=== PATIENT | female | born 1990 | race Caucasian/White ===

== ENCOUNTER 2021-07-02 19:52 | Emergency (ER) | payer OTHER ==
[2021-07-02 20:04] VITALS: RESP 18
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
[2021-07-02 21:11] LABS: Cocaine Screen,Urine Not Detected (NotDetected); Phencyclidine Screen,Urine Not Detected (NotDetected); Urn Cannabinoid Scrn Not Detected (NotDetected)
[2021-07-02 21:12] LABS: Amphetamine Screen,Urine Detected (NotDetected); Barbiturate Screen,Urine Not Detected (NotDetected); Benzodiazepines Screen,Urine Not Detected (NotDetected); Methadone Screen, Urine Not Detected (NotDetected); Opiate Screen,Urine Detected (NotDetected); Oxycodone Screen, Urine Not Detected (NotDetected); Tricyclic Antidepressant,Urine Not Detected (NotDetected)
[2021-07-02 22:13] VITALS: BP 146/89; PULSE 80; TEMP 97.8
== END 2021-07-02 22:05 | disposition home or self-care (01) ==
LOC: EC 19:52
DX: F15.10 Other stimulant abuse, uncomplicated (principal); F17.200 Nicotine dependence, unspecified, uncomplicated
CPT/HCPCS: 80306; 82075; 99285

== ENCOUNTER 2021-09-14 14:54 | Emergency (ER) | payer OTHER ==
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
[2021-09-14 17:04] VITALS: BP 136/80; PULSE 103; RESP 16; TEMP 98
== END 2021-09-14 17:06 | disposition home or self-care (01) ==
LOC: EC 14:54
DX: T40.1X1A Poisoning by heroin, accidental (unintentional), initial encounter (principal); F17.200 Nicotine dependence, unspecified, uncomplicated; Z72.89 Other problems related to lifestyle
CPT/HCPCS: 99283

== ENCOUNTER 2022-07-12 02:07 | Emergency (ER) | payer OTHER ==
[2022-07-12 02:22] VITALS: RESP 18
[2022-07-12] MEDS ORDERED: MORPHINE SULFATE 4 MG/ML SYRINGE IV STA (02:37)
[2022-07-12] MEDS ORDERED: ONDANSETRON 4 MG/2 ML VIAL IVP STA (02:37)
[2022-07-12] MEDS ORDERED: SODIUM CHLORIDE 0.9% 1,000 ML IV STA (02:37)
[2022-07-12] MEDS ORDERED: PANTOPRAZOLE 40 MG/10 ML VIAL IVP STA (02:37)
--- NOTE | 2022-07-12 02:37 | ED ---
Abdominal Pain HPI - General Chief Complaint: Abdominal Pain Stated Complaint: Upper Abd Pain Time Seen by Provider: 07/12/22 02:30 Source: patient Mode of arrival: ambulatory Limitations: no limitations - History of Present Illness Initial Comments: 31-year-old female with past history of intravenous drug abuse presents to the emergency department with epigastric pain. States the pain has been present for the past 4 hours. Denies provocative factors including food intake. Pain is located in the epigastric region. Denies history of similar in the past. She denies ulcer history, pancreatitis. No alcohol use. She admits to nausea without vomiting. Pain does not radiate. She has not taken anything for the pain at home. She denies any changes in her urination to include dysuria, hematuria or difficulty voiding. Denies diarrhea, constipation, black or bloody stools. No fevers. No chest pain. No history of cardiac disease. She is st atus post cholecystectomy. No other alleviating, precipitating or modifying factors - Related Data Previous Rx's Medication Instructions Recorded Cephalexin [Keflex] 500 mg PO Q12HR 1 Days #14 cap 07/12/22 Famotidine [Pepcid] 20 mg PO BID #28 tablet 07/12/22 Omeprazole [PriLOSEC] 20 mg PO AC-BRKFST #30 cap 07/12/22 Allergies Allergy/AdvReac Type Severity Reaction Status Date / Time No Known Allergies Allergy Verified 07/12/22 02:22 Review of Systems ROS Statement: Those systems with pertinent positive or pertinent negative responses have been documented in the HPI. ROS Other: All systems not noted in ROS Statement are negative. Past Medical History Past Medical History: No Reported History History of Any Multi-Drug Resistant Organisms: MRSA Date of last positivie culture/infection: 2015 MDRO Source:: abd Past Surgical History: Section, Cholecystectomy Past Psychological History: ADD/ADHD, Depression Smoking Status: Current every day smoker Past Alcohol Use History: Occasional Past Drug Use History: Methamphetamine General Exam Limitations: no limitations General appearance: alert, in no apparent distress Head exam: Present: atraumatic, normocephalic, normal inspection Eye exam: Present: normal appearance, PERRL, EOMI. Absent: scleral icterus, conjunctival injection, periorbital swelling ENT exam: Present: normal exam, mucous membranes moist Neck exam: Present: normal inspection. Absent: tenderness, meningismus, lymphadenopathy Respiratory exam: Present: normal lung sounds bilaterally. Absent: respiratory distress, wheezes, rales, rhonchi, stridor Cardiovascular Exam: Present: regular rate, normal rhythm, normal heart sounds. Absent: systolic murmur, diastolic murmur, rubs, gallop, clicks GI/Abdominal exam: Present: soft, tenderness (epigastric), normal bowel sounds. Absent: distended, guarding, rebound, rigid Extremities exam: Present: normal inspection, full ROM, normal capillary refill. Absent: tenderness, pedal edema, joint swelling, calf tenderness Back exam: Present: normal inspection Neurological exam: Present: alert, oriented X3, CN II-XII intact Psychiatric exam: Present: normal affect, normal mood Skin exam: Present: warm, dry, intact, normal color. Absent: rash Course Vital Signs 07/12/22 07/12/22 02:19 05:17 Temperature 98.1 F 97.8 F Pulse Rate 94 115 H Respiratory 18 18 Rate Blood Pressure 166/105 151/99 O2 Sat by Pulse 100 Oximetry Medical Decision Making - Medical Decision Making Upon arrival patient is placed into room 6. A thorough history and physical exam was performed. IV access is established laboratory studies are conducted and reviewed. Liver enzymes are elevated. Urine is positive for nitrites. CT the abdomen and pelvis demonstrates no acute process. Possible intrauterine gestational sac however the patient is not . The patient was given Protonix, GI cocktail and a dose of morphine and Zofran. Patient also given a liter bolus normal saline. She is reevaluated and reports that her pain is resolved at this time. I did discuss diagnosis, differential and treatment options. Patient will be placed on Pepcid, Protonix In the outpatient setting. Instructed to take the medications as directed. He is to follow-up with a GI doctor as she needs further evaluation for her elevated liver enzymes and epigastric symptoms. She is instructed to return for any new or worsening symptoms. Patient was agreeable to this plan and was discharged home in stable condition. - Lab Data Result diagrams: 07/12/22 03:08 07/12/22 03:08 Lab Results 07/12/22 07/12/22 07/12/22 Range/Units 03:08 03:08 03:08 WBC 4.7 (3.8-10.6) k/uL RBC 4.11 (3.80-5.40) m/uL Hgb 12.9 (11.4-16.0) gm/dL Hct 38.6 (34.0-46.0) % MCV 93.9 (80.0-100.0) fL MCH 31.3 (25.0-35.0) pg MCHC 33.4 (31.0-37.0) g/dL RDW 11.5 (11.5-15.5) % Plt Count 350 (150-450) k/uL MPV 6.6 Neutrophils % 36 % Lymphocytes % 51 % Monocytes % 6 % Eosinophils % 3 % Basophils % 2 % Neutrophils # 1.7 (1.3-7.7) k/uL Lymphocytes # 2.4 (1.0-4.8) k/uL Monocytes # 0.3 (0-1.0) k/uL Eosinophils # 0.1 (0-0.7) k/uL Basophils # 0.1 (0-0.2) k/uL Sodium (137-145) mmol/L Potassium (3.5-5.1) mmol/L Chloride (98-107) mmol/L Carbon Dioxide (22-30) mmol/L Anion Gap mmol/L BUN (7-17) mg/dL Creatinine (0.52-1.04) mg/dL Est GFR (CKD-EPI)AfAm (>60 ml/min/1.73 sqM) Est GFR (CKD-EPI)NonAf (>60 ml/min/1.73 sqM) Glucose (74-99) mg/dL Calcium (8.4-10.2) mg/dL Total Bilirubin (0.2-1.3) mg/dL AST (14-36) U/L ALT (4-34) U/L Alkaline Phosphatase (38-126) U/L Troponin I (0.000-0.034) ng/mL Total Protein (6.3-8.2) g/dL Albumin (3.5-5.0) g/dL Lipase (23-300) U/L Urine Color Light Yellow Urine Appearance Clear (Clear) Urine pH 7.0 (5.0-8.0) Ur Specific [place] 1.035 (1.001-1.035) Urine Protein Negative (Negative) Urine Glucose (UA) Negative (Negative) Urine Ketones Negative (Negative) Urine Blood Negative (Negative) Urine Nitrite Positive H (Negative) Urine Bilirubin Negative (Negative) Urine Urobilinogen <2.0 (<2.0) mg/dL Ur Leukocyte Esterase Negative (Negative) Urine RBC 1 (0-5) /hpf Urine WBC 1 (0-5) /hpf Ur Squamous Epith Cells 3 (0-4) /hpf Urine HCG, Qual Not Detected (Not Detectd) 07/12/22 07/12/22 Range/Units 03:08 03:08 WBC (3.8-10.6) k/uL RBC (3.80-5.40) m/uL Hgb (11.4-16.0) gm/dL Hct (34.0-46.0) % MCV (80.0-100.0) fL MCH (25.0-35.0) pg MCHC (31.0-37.0) g/dL RDW (11.5-15.5) % Plt Count (150-450) k/uL MPV Neutrophils % % Lymphocytes % % Monocytes % % Eosinophils % % Basophils % % Neutrophils # (1.3-7.7) k/uL Lymphocytes # (1.0-4.8) k/uL Monocytes # (0-1.0) k/uL Eosinophils # (0-0.7) k/uL Basophils # (0-0.2) k/uL Sodium 134 L (137-145) mmol/L Potassium 5.1 (3.5-5.1) mmol/L Chloride 97 L (98-107) mmol/L Carbon Dioxide 26 (22-30) mmol/L Anion Gap 11 mmol/L BUN 12 (7-17) mg/dL Creatinine 0.64 (0.52-1.04) mg/dL Est GFR (CKD-EPI)AfAm >90 (>60 ml/min/1.73 sqM) Est GFR (CKD-EPI)NonAf >90 (>60 ml/min/1.73 sqM) Glucose 99 (74-99) mg/dL Calcium 9.3 (8.4-10.2) mg/dL Total Bilirubin 1.0 (0.2-1.3) mg/dL AST 119 H (14-36) U/L ALT 145 H (4-34) U/L Alkaline Phosphatase 67 (38-126) U/L Troponin I 0.030 (0.000-0.034) ng/mL Total Protein 7.8 (6.3-8.2) g/dL Albumin 4.1 (3.5-5.0) g/dL Lipase 53 (23-300) U/L Urine Color Urine Appearance (Clear) Urine pH (5.0-8.0) Ur Specific [place] (1.001-1.035) Urine Protein (Negative) Urine Glucose (UA) (Negative) Urine Ketones (Negative) Urine Blood (Negative) Urine Nitrite (Negative) Urine Bilirubin (Negative) Urine Urobilinogen (<2.0) mg/dL Ur Leukocyte Esterase (Negative) Urine RBC (0-5) /hpf Urine WBC (0-5) /hpf Ur Squamous Epith Cells (0-4) /hpf Urine HCG, Qual (Not Detectd) - EKG Data EKG Comments: EKG demonstrates sinus rhythm with a rate of 84. KS interval 152. QRS 105. QTC of 425. No acute ST segment elevations or depressions Disposition Clinical Impression: Abnormal urinalysis, Epigastric pain, Elevated liver enzymes Disposition: HOME SELF-CARE Condition: Stable Instructions (If sedation given, give patient instructions): Abdominal Pain (ED) Additional Instructions: You need further evaluation of your elevated liver enzymes. I recommend seeing a GI doctor. You may need an EGD and liver ultrasound. Return for any new or worsening symptoms. Prescriptions: Cephalexin [Keflex] 500 mg PO Q12HR 1 Days #14 cap Famotidine [Pepcid] 20 mg PO BID #28 tablet Omeprazole [PriLOSEC] 20 mg PO AC-BRKFST #30 cap Is patient prescribed a controlled substance at d/c from ED?: No Referrals: Nicol Melchor DO [Primary Care Provider] - 1-2 days Miller Ambrose MD [Medical Doctor] - 1-2 days Tamela Lange MD [STAFF PHYSICIAN] - 1-2 days Time of Disposition: 05:04
[2022-07-12] MEDS ORDERED: MAG HYDROX/AL HYDROX/SIMETH 30 ML, HYOSCYAMINE ELIXIR 10 ML, LIDOCAINE VISCOUS 2% 10 ML PO STA ×3 (02:38)
[2022-07-12 03:41] LABS: Basophils # (A) 0.1 k/uL (0-0.2); Basophils % (A) 2 %; Eosinophils # (A) 0.1 k/uL (0-0.7); Eosinophils % (A) 3 %; HCT 38.6 % (34.0-46.0); HGB 12.9 gm/dL (11.4-16.0); Lymphocytes # (A) 2.4 k/uL (1.0-4.8); Lymphocytes % (A) 51 %; MCH 31.3 pg (25.0-35.0); MCHC 33.4 g/dL (31.0-37.0); MCV 93.9 fL (80.0-100.0); Mean Platelet Volume 6.6; Monocytes # (A) 0.3 k/uL (0-1.0); Monocytes % (A) 6 %; Neutrophils # (A) 1.7 k/uL (1.3-7.7); Neutrophils % (A) 36 %; Platelet Count 350 k/uL (150-450); RBC 4.11 m/uL (3.80-5.40); RDW 11.5 % (11.5-15.5); WBC 4.7 k/uL (3.8-10.6)
[2022-07-12 03:50] LABS: ALT 145 U/L (4-34); AST 119 U/L (14-36); African American GFR (CKD) >90 (>60 ml/min/1.73 sqM); Albumin 4.1 g/dL (3.5-5.0); Alkaline Phosphatase 67 U/L (38-126); Anion Gap 11 mmol/L; Blood Urea Nitrogen 12 mg/dL (7-17); Calcium 9.3 mg/dL (8.4-10.2); Carbon Dioxide 26 mmol/L (22-30); Chloride 97 mmol/L (98-107); Glucose 99 mg/dL (74-99); Lipase 53 U/L (23-300); Non-African American GFR(CKD) >90 (>60 ml/min/1.73 sqM); Sodium 134 mmol/L (137-145); Total Protein 7.8 g/dL (6.3-8.2)
--- NOTE | 2022-07-12 04:06 | CT ---
EXAMINATION TYPE: CT abdomen pelvis w con DATE OF EXAM: 07/12/2022 COMPARISON: None HISTORY: UPPER ABD PAIN & NAUSEA X4 HOURS CT DLP: 1109.7 mGycm Automated exposure control for dose reduction was used. CONTRAST: Performed with IV Contrast, patient injected with 100 mL of Isovue 300. Images obtained from the diaphragm to the floor of the pelvis with the IV contrast. Lung bases are clear of consolidation. No pleural effusion. Heart size is normal. No pericardial effu grupo. Liver spleen stomach pancreas appear intact. The bile ducts are not dilated. There are clips a nd cholecystectomy. There is no adrenal mass. Kidneys show satisfactory contrast opacification. No hydronephrosis. Append ix is anterior and appears normal. Bladder distends smoothly. No inguinal hernia. No free fluid in th e pelvis. Uterus is intact. There are clips from tubal ligation. No pelvic mass. No inguinal hernia. Uterus is retroverted. There is 1 cm area of rounded fluid density in the uterine fundus. There is no mesenteric edema. No ascites or free air. No bowel obstruction. The lumbar vertebrae have normal alignment. Posterior elements are intact. No compression fracture. Bony pelvis is intact. The hip joints are intact. IMPRESSION: Normal appendix. No acute abnormality in the abdomen and pelvis. Possible intrauterine gestational sac.
[2022-07-12 04:08] LABS: Potassium 5.1 mmol/L (3.5-5.1)
[2022-07-12 04:40] LABS: Appearance,Urine Clear (Clear); Bilirubin,Urine Negative (Negative); Blood,Urine Negative (Negative); Color,Urine Light Yellow; Glucose,Urine (UA) Negative (Negative); Ketones,Urine Negative (Negative); Leukocyte Esterase,Urine Negative (Negative); Nitrite,Urine Positive (Negative); Protein,Urine Negative (Negative); RBC,Urine 1 /hpf (0-5); Specific Gravity,Urine 1.035 (1.001-1.035); Squamous Epithelial Cell,Urine 3 /hpf (0-4); Urobilinogen,Urine <2.0 mg/dL (<2.0); WBC,Urine 1 /hpf (0-5)
[2022-07-12] MEDS ORDERED: CEPHALEXIN 500 MG CAP PO STA (04:49)
[2022-07-12 05:19] VITALS: BP 151/99; PULSE 115; TEMP 97.8
== END 2022-07-12 05:22 | disposition home or self-care (01) ==
LOC: EC 02:07
DX: R74.8 Abnormal levels of other serum enzymes (principal); R10.13 Epigastric pain; F17.200 Nicotine dependence, unspecified, uncomplicated
CPT/HCPCS: 36415; 80053; 83690; 84484; 85025; 81001; 81025; 74177; 99284; 96374; 96375; 96361; J2270; J2405; C9113; Q9967

== ENCOUNTER 2023-05-15 15:40 | Emergency (ER) | payer OTHER ==
[2023-05-15 16:01] VITALS: RESP 18; TEMP 99
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
[2023-05-15] MEDS ORDERED: KETOROLAC 15 MG/ML 1 ML VIAL IM STA (17:14)
[2023-05-15] MEDS ORDERED: DEXAMETHASONE SOD PHOSPHATE 10 MG/ML 1 ML VIAL IM STA (17:14)
[2023-05-15] MEDS ORDERED: ORPHENADRINE 30 MG/ML 2 ML VIAL IM STA (17:17)
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
[2023-05-15 17:57] VITALS: BP 128/79; PULSE 70
== END 2023-05-15 17:57 | disposition home or self-care (01) ==
LOC: EC 15:40
DX: S16.1XXA Strain of muscle, fascia and tendon at neck level, initial encounter (principal); F17.200 Nicotine dependence, unspecified, uncomplicated; Z86.59 Personal history of other mental and behavioral disorders; Z90.49 Acquired absence of other specified parts of digestive tract; V43.52XA Car driver injured in collision with other type car in traffic accident, initial encounter; Y92.410 Unspecified street and highway as the place of occurrence of the external cause
CPT/HCPCS: 73060; 73090; 73130; 72125; 70450; 99284; 96372 ×3; J1100; J2360; J1885

== ENCOUNTER 2023-05-16 09:16 | Emergency (ER) | payer OTHER ==
[2023-05-16 09:41] VITALS: RESP 18
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
--- NOTE | 2023-05-16 12:04 | XR ---
EXAMINATION TYPE: XR lumbar spine 2 or 3V DATE OF EXAM: 05/16/2023 11:23 AM INDICATION: Patient age:Female; 32 years old; Reason for study: pain; COMPARISON: None TECHNIQUE: Frontal, lateral and coned in L5-S1 lateral views of the spine. FINDINGS: No evidence of any acute osseous pathology. No evidence of loss of vertebral body height i s seen. There is normal alignment of the lumbar vertebral bodies. No significant degeneration changes throughout the spine. IMPRESSION: No acute fracture.
[2023-05-16 12:28] VITALS: BP 132/80; PULSE 68; TEMP 97.8
== END 2023-05-16 12:30 | disposition home or self-care (01) ==
LOC: EC 09:16
DX: M54.50 Low back pain, unspecified (principal); M79.662 Pain in left lower leg; V89.2XXA Person injured in unspecified motor-vehicle accident, traffic, initial encounter; Y92.410 Unspecified street and highway as the place of occurrence of the external cause
CPT/HCPCS: 72100; 99284

== ENCOUNTER 2023-10-01 15:03 | Emergency (ER) | payer OTHER ==
[2023-10-01 15:21] VITALS: TEMP 98.7
[2023-10-01] MEDS ORDERED: KETOROLAC 15 MG/ML 1 ML VIAL IVP STA (15:26)
[2023-10-01] MEDS ORDERED: SODIUM CHLORIDE 0.9% 1,000 ML IV STA (15:26)
[2023-10-01] MEDS ORDERED: DEXAMETHASONE SOD PHOSPHATE 10 MG/ML 1 ML VIAL IVP STA (15:26)
[2023-10-01] MEDS ORDERED: diphenhydrAMINE 50 MG/ML 1 ML VIAL IVP STA (15:26)
[2023-10-01] MEDS ORDERED: METOCLOPRAMIDE 5 MG/ML 2 ML VIAL IVP STA (15:27)
--- NOTE | 2023-10-01 15:35 | ED ---
Headache HPI - General Chief Complaint: Headache Stated Complaint: R eye and head pain Time Seen by Provider: 10/01/23 15:12 Mode of arrival: ambulatory Limitations: no limitations - History of Present Illness Initial Comments: Hortensia is a 33-year-old female who presents to the ER today for evaluation of headache. Patient states that she's had a upper respiratory infection for a couple days with a minimally productive cough, runny stuffy nose and sore throat. She states that today she feels like there is a lot of pressure above and behind her right eye and headache. No vision changes. States it feels like a sinus headache but worse than typical. Patient denies history of migraines. She denies any head trauma. - Related Data Previous Rx's Medication Instructions Recorded Cephalexin [Keflex] 500 mg PO Q12HR 1 Days #14 cap 07/12/22 Famotidine [Pepcid] 20 mg PO BID #28 tablet 07/12/22 Omeprazole [PriLOSEC] 20 mg PO AC-BRKFST #30 cap 07/12/22 methocarbamoL [Robaxin-750] 750 mg PO QID PRN #12 tab 05/15/23 Allergies Allergy/AdvReac Type Severity Reaction Status Date / Time No Known Allergies Allergy Verified 10/01/23 15:09 Review of Systems ROS Statement: Those systems with pertinent positive or pertinent negative responses have been documented in the HPI. ROS Other: All systems not noted in ROS Statement are negative. Past Medical History Past Medical History: No Reported History Additional Past Medical History / Comment(s): autoimmune disease History of Any Multi-Drug Resistant Organisms: MRSA Date of last positivie culture/infection: 2015 MDRO Source:: abd Past Surgical History: Section, Cholecystectomy, Tonsillectomy, Tubal Ligation Past Psychological History: ADD/ADHD, Depression Smoking Status: Current every day smoker Past Alcohol Use History: Occasional Past Drug Use History: Marijuana, Methamphetamine General Exam - General Exam Comments Initial Comments: Physical Exam GENERAL: Patient is well-developed and well-nourished Patient is nontoxic and well-hydrated and is in no distress. HENT: Normocephalic, Atraumatic Tenderness to percussion of right frontal sinus Nasal turbinates edematous EYES: PERRL, EOMI Tearing from right eye PULMONARY: Unlabored respirations CARDIOVASCULAR: RRR Warm and well perfused extremities ABDOMEN: Non-distended SKIN: No rashes or bruising : Deferred NEUROLOGIC: Alert and oriented Normal speech Normal gait MUSCULOSKELETAL: Moving all extremities with no apparent injury PSYCHIATRIC: No SI/HI Limitations: no limitations Course Vital Signs 10/01/23 10/01/23 15:07 17:14 Temperature 98.7 F Pulse Rate 106 H 96 Respiratory 20 18 Rate Blood Pressure 141/92 143/86 O2 Sat by Pulse 99 99 Oximetry Medical Decision Making - Medical Decision Making Was pt. sent in by a medical professional or institution (, JESUS, DISPOSAL OPERATOR, urgent care, hospital, or fci...) When possible be specific @ -No Did you speak to anyone other than the patient for history (EMS, parent, family, police, friend...)? What history was obtained from this source @ -No Did you review nursing and triage notes (agree or disagree)? Why? @ -I reviewed and agree with nursing and triage notes Were old charts reviewed (outside hosp., previous admission, EMS record, old EKG, old radiological studies, urgent care reports/EKG's, [facility]ci records)? Report findings @ Previous ER visits were reviewed Differential Diagnosis (chest pain, altered mental status, abdominal pain women, abdominal pain men, vaginal bleeding, weakness, fever, dyspnea, syncope, headache, dizziness, GI bleed, back pain, seizure, CVA, palpatations, mental health)? @ Differential Headache: Migraine, tension, cluster, carbon monoxide, central venous thrombosis, pension karma temporal arteritis, acute closure glaucoma, intercranial hemorrhage, mastoiditis, sinusitis, head injury, this is not meant to be an all-inclusive list. EKG interpreted by me (3pts min.). @ -As above X-rays interpreted by me (1pt min.). @ -None done CT interpreted by me (1pt min.). @ -None done U/S interpreted by me (1pt. min.). @ -None done What testing was considered but not performed or refused? (CT, X-rays, U/S, labs)? Why? @ -None What meds were considered but not given or refused? Why? @ -None Did you discuss the management of the patient with other professionals (professionals i.e. , JESUS, DISPOSAL OPERATOR, lab, RT, psych nurse, social sciences department chair, lodging facilities manager, teacher, chief contract officer, case planner)? Give summary @ -No Was smoking cessation discussed for >3mins.? @ -No Was critical care preformed (if so, how long)? @ -No Were there social determinants of health that impacted care today? How? (Homelessness, low income, unemployed, alcoholism, drug addiction, transportation, low edu. Level, literacy, decrease access to med. care, residential, rehab)? @ -No Was there de-escalation of care discussed even if they declined (Discuss DNR or withdrawal of care, Hospice)? DNR status @ -No What co-morbidities impacted this encounter? (DM, HTN, Smoking, COPD, CAD, Cancer, CVA, ARF, Chemo, Hep., AIDS, mental health diagnosis, sleep apnea, morbid obesity)? @ -None Was patient admitted / discharged? Hospital course, mention meds given and route, prescriptions, significant lab abnormalities, going to OR and other pertinent info. @ Discharge Patient was seen and evaluated, history is obtained from the patient. Patient with viral URI type symptoms and sinus headache with tearing of the eye. She is placed on oxygen treat for possible cluster headache and was given a migraine cocktail. Patient was negative for COVID-19. Upon reevaluation patient reports she is feeling much better states that she like to go home to rest. Undiagnosed new problem with uncertain prognosis? @ -No Drug Therapy requiring intensive monitoring for toxicity (Heparin, Nitro, Insulin, Cardizem)? @ -No Were any procedures done? @ -No Diagnosis/symptom? @ -Headache Acute, or Chronic, or Acute on Chronic? @ -default Uncomplicated (without systemic symptoms) or Complicated (systemic symptoms)? @ -default Side effects of treatment? @ -No Exacerbation, Progression, or Severe Exacerbation? @ -No Poses a threat to life or bodily function? How? (Chest pain, [place], [place], pneumonia, PE, COPD, DKA, ARF, appy, cholecystitis, CVA, Diverticulitis, Homicidal, Suicidal, threat to staff... and all critical care pts) @ -No - Lab Data Lab Results 10/01/23 Range/Units 15:58 SARS-CoV-2 (PCR) Not Detected (Not Detectd) Disposition Clinical Impression: Headache Disposition: HOME SELF-CARE Condition: Stable Instructions (If sedation given, give patient instructions): Acute Headache (ED) Is patient prescribed a controlled substance at d/c from ED?: No Referrals: None,Stated [Primary Care Provider] - 1-2 days
[2023-10-01 17:35] VITALS: BP 143/86; PULSE 96; RESP 18
== END 2023-10-01 18:15 | disposition home or self-care (01) ==
LOC: EC 15:03
DX: R51.9 Headache, unspecified (principal); F12.90 Cannabis use, unspecified, uncomplicated; F17.200 Nicotine dependence, unspecified, uncomplicated; Z90.49 Acquired absence of other specified parts of digestive tract; Z20.822 Contact with and (suspected) exposure to COVID-19
CPT/HCPCS: 87635; 99284; 96374; 96375 ×3; 96361; J1200; J1100; J2765; J1885

== ENCOUNTER 2024-07-07 20:18 | Emergency (ER) | payer OTHER ==
[2024-07-07 20:27] VITALS: RESP 18
[2024-07-07 20:49] VITALS: TEMP 97.7
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
[2024-07-07] MEDS: HYDROmorphone 0.5 MG/0.5 ML SYRINGE IM STA (21:18)
[2024-07-07] MEDS: KETOROLAC 15 MG/ML 1 ML VIAL IM STA (21:21)
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
[2024-07-07] MEDS: HYDROcodone/APAP 10-325MG 1 EACH TAB PO ONE (22:27)
[2024-07-07] MEDS: DEXAMETHASONE SOD PHOSPHATE 10 MG/ML 1 ML VIAL IM STA (22:27)
[2024-07-07] MEDS: HYDROmorphone 1 MG/ML 1 ML SYRINGE IM STA (22:28)
[2024-07-07] MEDS: ACET/COD 300 MG/30 MG STARTER PACK 6 TAB BTL PO STA (22:28)
[2024-07-07] MEDS: AMOXIC-POT CLAV 875MG STARTER PACK 2 TAB BTL PO STA (22:29)
[2024-07-07] MEDS: IBUPROFEN 600 MG STARTER PACK 4 TAB BTL PO STA (22:29)
[2024-07-07 22:34] VITALS: BP 130/85; PULSE 75
== END 2024-07-07 22:48 | disposition home or self-care (01) ==
LOC: EC 20:18
CPT/HCPCS: 70450; 70486; 96372; 99284